=== PATIENT | male | born 1990 | race Caucasian/White ===

== ENCOUNTER 2019-10-29 03:25 | Emergency (ER) | payer OTHER ==
[~2019-10-29] VITALS: Ht 167.6 cm; Wt 72.7 kg
[2019-10-29 04:01] LABS: HEMATOCRIT 37.2 % (42.0-52.0); HEMOGLOBIN 12.4 g/dl (13.5-17.5); MEAN CORPUSCULAR HEMOGLOBIN 30.8 pg (27.0-33.0); MEAN CORPUSCULAR HGB CONC 33.3 g/dl (32.0-36.5); MEAN CORPUSCULAR VOLUME 92.3 fl (80.0-96.0); PLATELET COUNT, AUTOMATED 294 10^3/uL (150-450); RED BLOOD COUNT 4.03 10^6/uL (4.30-6.10); WHITE BLOOD COUNT 7.2 10^3/uL (4.0-10.0)
--- NOTE | 2019-10-29 04:10 | REPVR ---
PROCEDURE INFORMATION: Exam: CT Cervical Spine Without Contrast Exam date and time: 10/29/2019 3:41 AM Age: 29 years old Clinical indication: Neck pain; Additional info: Head injury TECHNIQUE: Imaging protocol: Computed tomography images of the cervical spine without contrast. Radiation optimization: All CT scans at this facility use at least one of these dose optimization techniques: automated exposure control; mA and/or kV adjustment per patient size (includes targeted exams where dose is matched to clinical indication); or iterative reconstruction. COMPARISON: No relevant prior studies available. FINDINGS: Vertebrae: Congenitally fused T1 and T2. Normal spinal curvature, vertebral body heights, and alignment. No spinal fracture or acute subluxation. Minimal levoconvex cervical curvature. Discs/Spinal canal/Neural foramina: Diffuse degenerative disc space loss with degenerative disc osteophyte complexes causes up to mild spinal and foraminal stenosis greatest at C4-C6. Soft tissues: Unremarkable. Lungs: Lung apices are normal. IMPRESSION: No acute vertebral fracture/subluxation. Electronically signed by: Americo Chase On 10/29/2019 04:10:01 AM
--- NOTE | 2019-10-29 04:10 | REPVR ---
PROCEDURE INFORMATION: Exam: CT Head Without Contrast Exam date and time: 10/29/2019 3:41 AM Age: 29 years old Clinical indication: Injury or trauma; Fall; Initial encounter; Concussion / head injury; Consciousness not specified TECHNIQUE: Imaging protocol: Computed tomography of the head without contrast. Radiation optimization: All CT scans at this facility use at least one of these dose optimization techniques: automated exposure control; mA and/or kV adjustment per patient size (includes targeted exams where dose is matched to clinical indication); or iterative reconstruction. COMPARISON: No relevant prior studies available. 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 No abnormal cerebral hemorrhage. No midline shift. No loss of jama-white differentiation. No cerebral hemorrhage. Ventricles: Normal. No ventriculomegaly. Bones/joints: Subtle hairline fracture through the mid frontal bone. Sinuses: Visualized sinuses are unremarkable. No fluid levels. Mastoid air cells: Visualized mastoid air cells are well aerated. Soft tissues: Forehead soft tissue swelling. IMPRESSION: 1. Subtle hairline fracture through the mid frontal bone. 2. Forehead soft tissue swelling. Electronically signed by: Americo Chase On 10/29/2019 04:09:24 AM
[2019-10-29 04:53] LABS: ACETAMINOPHEN LEVEL < 2.0 UG/ML (10.0-30.0); ALT/SGPT 21 U/L (12-78); BILIRUBIN,DIRECT 0.1 MG/DL (0.0-0.2); BILIRUBIN,TOTAL 0.3 MG/DL (0.2-1.0); BLOOD UREA NITROGEN 10 MG/DL (7-18); CALCIUM LEVEL 8.2 MG/DL (8.5-10.1); CARBON DIOXIDE LEVEL 26 MEQ/L (21-32); CHLORIDE LEVEL 109 MEQ/L (98-107); CREATININE FOR GFR 0.96 MG/DL (0.70-1.30); ETHYL ALCOHOL (ETHANOL) 0.187 % (0.000-0.010); GLOMERULAR FILTRATION RATE > 60.0 (>60); GLUCOSE, FASTING 127 MG/DL (70-100); POTASSIUM SERUM 3.9 MEQ/L (3.5-5.1); SALICYLATE LEVEL 2.9 MG/DL (5.0-30.0); SODIUM LEVEL 144 MEQ/L (136-145); TOTAL PROTEIN 6.9 GM/DL (6.4-8.2)
[2019-10-29 06:56] LABS: AMPHETAMINES LEVEL URINE NEGATIVE (NEGATIVE); BARBITURATES URINE NEGATIVE (NEGATIVE); BENZODIAZEPINES URINE NEGATIVE (NEGATIVE); CANNABINOIDS URINE NEGATIVE (NEGATIVE); COCAINE METABOLITE URINE NEGATIVE (NEGATIVE); METHADONE URINE NEGATIVE (NEGATIVE); OPIATES URINE NEGATIVE (NEGATIVE); PHENCYCLIDINE URINE NEGATIVE (NEGATIVE)
--- NOTE | 2019-10-29 10:18 | REP ---
CT BRAIN WITHOUT CONTRAST: 9:38 A.M. ACQUISITION. HISTORY: 6 hour repeat. Comparison study is from 3:50 a.m. on the same date. CT FINDINGS: Bone window settings again demonstrate a nondisplaced linear fracture of the frontal bone just to the left of midline contiguous with the anterior edge of the fused sagittal suture. There is slight adjacent soft tissue swelling. There is no evidence of intracranial hemorrhage. No extra-axial fluid collection, contusion, or midline shift is seen. A small quadrigeminal plate lipoma is noted incidentally, unchanged, measuring 14 x 12 x 10 mm. Velez-white differentiation pattern is intact. Ventricular system is normal. No intraorbital abnormality is seen. IMPRESSION: Midline frontal bone fracture, nondisplaced anteriorly. No intracranial injury seen. Incidental quadrigeminal plate lipoma. Electronically Signed by Camilo Mc MD 10/29/2019 10:36 A
[2019-10-29 10:40] VITALS: BP 128/74
== END 2019-10-29 10:54 | disposition home or self-care (01) ==
LOC: EDBD 03:25 → M ED 03:25
DX: S02.0XXA Fracture of vault of skull, initial encounter for closed fracture (principal); S06.0X0A Concussion without loss of consciousness, initial encounter; X58.XXXA Exposure to other specified factors, initial encounter; Y92.410 Unspecified street and highway as the place of occurrence of the external cause; F10.229 Alcohol dependence with intoxication, unspecified; D55.0 Anemia due to glucose-6-phosphate dehydrogenase [G6PD] deficiency; Z91.018 Allergy to other foods; F17.210 Nicotine dependence, cigarettes, uncomplicated
CPT/HCPCS: 36415; 70450; 72125; 80048; 80076; 80307; 84443; 85027; 99285; G0480